=== PATIENT | male | born 1950 | race Asian ===

== ENCOUNTER 2020-12-17 11:16 | Inpatient (IN) | payer BC, OTHER, SELFPAY ==
[~2020-12-17] VITALS: Ht 172.7 cm; Wt 61.2 kg
[2020-12-17 11:18] VITALS: Ht 172.7 cm; Wt 61.2 kg
[2020-12-17 12:23] LABS: CALCIUM 9.9 mg/dL (8.5-10.1); CARBON DIOXIDE 25.6 mmol/L (21-32); CHLORIDE SERUM 97 mmol/L (98-107); CREATININE SERUM 1.3 mg/dL (0.7-1.3); GFR1 58 mL/min; GLUCOSE SERUM 192 mg/dL (74-106); POTASSIUM SERUM 4.2 mmol/L (3.5-5.1); SODIUM SERUM 136 mmol/L (136-145)
[2020-12-17 12:24] LABS: BASOPHIL % 0.4 % (0.2-1.5); RED CELL DISTRIBUTION WIDTH 12.8 % (12.1-16.2)
[2020-12-17 12:27] LABS: ALBUMIN 3.5 g/dL (3.4-5.0); ALKALINE PHOSPHATASE 78 U/L (46-116); ALT/SGPT 53 U/L (16-63); AST/SGOT 52 U/L (15-37); BILIRUBIN TOTAL 0.77 mg/dL (0.20-1.00); LACTIC DEHYDROGENASE (LDH) 346 U/L (100-190)
[2020-12-17 12:31] LABS: PLATELET COUNT 455 x10^3mcL (152-348)
[2020-12-17 12:45] LABS: TOTAL PROTEIN, SERUM 8.9 g/dL (6.4-8.2)
[2020-12-17 12:46] LABS: C REACTIVE PROTEIN 13.4 mg/dL (<=0.9)
[2020-12-17 12:47] LABS: UA SPECIFIC GRAVITY >=1.030 (1.005-1.035); microscopic required? YES; urine erythrocyte 1+ (NEGATIVE)
[2020-12-17] MEDS ORDERED: FENOFIBRATE MI134 MG PO (13:26)
[2020-12-17] MEDS ORDERED: LOSARTAN POTASS1 TA8 PO (13:26)
[2020-12-17] MEDS ORDERED: SIMVASTATIN40 M1 PO (13:26)
[2020-12-17] MEDS ORDERED: METFORMIN HCL1000 M2 PO (13:27)
[2020-12-17] MEDS ORDERED: PROAIR HFA8.5 GM INH (13:27)
[2020-12-17] MEDS ORDERED: ADV250/50 IH (13:28)
[2020-12-17] MEDS ORDERED: FISH OIL 1,0001 EACH PO (13:29)
[2020-12-17] MEDS ORDERED: PHARMASSURE V PO (13:29)
[2020-12-17] MEDS ORDERED: ECOTRIN81 M2 PO (13:29)
[2020-12-17] MEDS ORDERED: CENTRUM SILVER1 EAC4 PO (13:30)
[2020-12-17] MEDS ORDERED: [UNRECOGNIZED DRUG - REMARK] (13:30)
[2020-12-17 13:49] LABS: MAGNESIUM 2.2 mg/dL (1.8-2.4); PHOSPHOROUS 4.2 mg/dL (2.5-4.9)
[2020-12-17 13:56] LABS: FREE T4 1.52 ng/dL (0.76-1.46); FREE THYROXINE INDEX 4.5 ug/dL (1.4-4.5); T4(THYROXINE) 12.5 ug/dL (4.7-13.3)
[2020-12-17 14:29] LABS: T3 TOTAL 1.02 ng/mL
[2020-12-17 15:00] VITALS: BP 101/67
[2020-12-17 18:11] VITALS: BP 99/57
[2020-12-17 21:55] VITALS: BP 112/72
[2020-12-18 06:06] VITALS: BP 115/65
[2020-12-18 07:48] LABS: BASOPHIL % 0.7 % (0.2-1.5); RED CELL DISTRIBUTION WIDTH 12.7 % (12.1-16.2)
[2020-12-18 07:59] LABS: PLATELET COUNT 427 x10^3mcL (152-348)
[2020-12-18 09:01] VITALS: BP 116/66
[2020-12-18 09:23] LABS: CALCIUM 9.8 mg/dL (8.5-10.1); CARBON DIOXIDE 27.8 mmol/L (21-32); CHLORIDE SERUM 100 mmol/L (98-107); CREATININE SERUM 1.2 mg/dL (0.7-1.3); GFR1 > 60 mL/min; GLUCOSE SERUM 106 mg/dL (74-106); POTASSIUM SERUM 4.4 mmol/L (3.5-5.1); SODIUM SERUM 135 mmol/L (136-145)
[2020-12-18 11:59] VITALS: BP 105/56
[2020-12-18 17:26] VITALS: BP 101/56
[2020-12-18 20:41] VITALS: BP 96/52
[2020-12-19 05:30] VITALS: BP 105/61
[2020-12-19 06:44] LABS: BASOPHIL % 0.1 % (0.2-1.5); RED CELL DISTRIBUTION WIDTH 12.7 % (12.1-16.2)
[2020-12-19 07:15] LABS: BILIRUBIN DIRECT 0.15 mg/dL (0.0-0.2); BILIRUBIN TOTAL 0.4 mg/dL (0.20-1.00)
[2020-12-19 07:25] LABS: CALCIUM 9.3 mg/dL (8.5-10.1); CARBON DIOXIDE 27.8 mmol/L (21-32); CREATININE SERUM 1.8 mg/dL (0.7-1.3); POTASSIUM SERUM 4.8 mmol/L (3.5-5.1)
[2020-12-19 08:57] VITALS: BP 116/70
[2020-12-19 12:13] VITALS: BP 113/65
[2020-12-19 13:57] LABS: PLATELET COUNT 527 x10^3mcL (152-348)
[2020-12-19 16:44] VITALS: BP 119/67
[2020-12-19 19:41] VITALS: BP 108/58
[2020-12-20 05:07] VITALS: BP 126/76
[2020-12-20 07:12] LABS: BILIRUBIN DIRECT 0.17 mg/dL (0.0-0.2); BILIRUBIN TOTAL 0.4 mg/dL (0.20-1.00); C REACTIVE PROTEIN 6.7 mg/dL (<=0.9); CARBON DIOXIDE 28.4 mmol/L (21-32); CREATININE SERUM 1.8 mg/dL (0.7-1.3); POTASSIUM SERUM 3.9 mmol/L (3.5-5.1); TOTAL PROTEIN, SERUM 7.6 g/dL (6.4-8.2)
[2020-12-20 07:16] LABS: BASOPHIL % 0.2 % (0.2-1.5); RED CELL DISTRIBUTION WIDTH 12.7 % (12.1-16.2)
[2020-12-20 07:53] LABS: ALBUMIN 2.9 g/dL (3.4-5.0)
[2020-12-20] MEDS ORDERED: ZINC SULFATE220 MG PO (08:22)
[2020-12-20] MEDS ORDERED: MUCINEX600 MG PO (08:22)
[2020-12-20] MEDS ORDERED: DECADRON6 MG PO (08:23)
[2020-12-20] MEDS ORDERED: ELIQUIS2.5 MG PO (08:23)
[2020-12-20 08:48] LABS: PLATELET COUNT 562 x10^3mcL (152-348)
[2020-12-20 09:53] VITALS: BP 123/73
== END 2020-12-20 10:51 | disposition home or self-care (01) | DRG 871 ==
LOC: ED 11:16 → DU 13:03
PROVIDERS: Emergency Medicine; Internal Medicine Critical Care Medicine; ADMIT Family Medicine; ATTEND Family Medicine
PROC: XW033E5 Introduction of Remdesivir Anti-infective into Peripheral Vein, Percutaneous Approach, New Technology Group 5 (ICD-10-PCS; principal; 2020-12-18)
DX: A41.9 Sepsis, unspecified organism (principal); U07.1 COVID-19; J12.82 Pneumonia due to coronavirus disease 2019; I10 Essential (primary) hypertension; J45.909 Unspecified asthma, uncomplicated; E11.9 Type 2 diabetes mellitus without complications; E78.5 Hyperlipidemia, unspecified; E78.00 Pure hypercholesterolemia, unspecified; Z88.1 Allergy status to other antibiotic agents; Z79.899 Other long term (current) drug therapy; Z79.891 Long term (current) use of opiate analgesic; Z79.01 Long term (current) use of anticoagulants; Z79.82 Long term (current) use of aspirin; Z79.84 Long term (current) use of oral hypoglycemic drugs; Z83.6 Family history of other diseases of the respiratory system; Z87.891 Personal history of nicotine dependence
CPT/HCPCS: 36600; 82962; 83880; 84439; 85378; 87804; G0378; J0456; J1100; J1644; J3535; J7040; J7050; U0003